=== PATIENT | female | born 1960 | race Two or more races ===

== ENCOUNTER 2022-04-06 16:04 | Emergency (ER) | payer MEDICARE, MEDICAID, SELFPAY ==
[2022-04-06 16:34] VITALS: BP 154/78; PULSE 94; RESP 18; TEMP 37.1; O2SAT 98; BMI 32.9
--- NOTE | 2022-04-06 19:50 | ED_ITS ---
HPI - General Adult General Chief complaint: Wound/Laceration Stated complaint: foot wound Time Seen by Provider: 04/06/22 19:18 Source: patient Mode of arrival: ambulatory Limitations: no limitations History of Present Illness HPI narrative: 67-year-old female presents to ED for right ankle wound that has been chronic and present for the past 2 months. Patient states a broom hit her ankle and splinter went into her ankle. Patient states months later she removed the splinter wood and eounf has been the same. Patient does not know of medical history. Patient has not been to the doctor in 35 years. Patient admits to being a smoker. Patient unknown she is diabetic. Patient's friend states at onr time patient is finger glucose was 300 when she checked on another friend's glucometer. Patient denies any dysuria, hematuria, polydipsia or polyuria. Patient denies any weakness or dizziness. Patient denies any fever or chills Related Data Allergies Allergy/AdvReac Type Severity Reaction Status Date / Time No Known Allergies Allergy Unverified 04/04/20 17:56 Lidocaine Allergy Unknown Uncoded 12/07/18 00:00 Review of Systems Review of Systems: RIght ankle wound PMFSH Social History Social History Advance Directives: No Advance Directives Information Provided: No Physical Exam ED Vital Signs: Vital Signs - 24 hr 04/06/22 16:34 Temperature 98.8 F Pulse Rate 94 Respiratory Rate 18 Blood Pressure 154/78 H Pulse Oximetry 98 Oxygen Delivery Method Room Air BMI result Body Mass Index 32.9 Const General: cooperative, healthy appearing, comfortable, no acute distress, well developed, awake and Physically active Orientation/consciousness: oriented to time and patient oriented x3 [facility] Head: Yes normal to inspection, Yes No palpable skull fracture present, Yes normocephalic, Yes atraumatic and No abrasion Eyes General: appearance normal, both eyes and all related structures Neck Neck: Yes normal visual inspection, Yes full ROM, Yes no lymphadenopathy, Yes no meningeal signs, Yes trachea midline, Yes supple, No anterior neck swelling and No tender Chest Chest palpation & inspection: normal inspection of the chest and normal palpation of entire chest wall Breast/axilla inspection: normal inspection of the breasts Resp Effort & Inspection: normal respiratory effort and able to speak in complete sentences Auscultation: clear to auscultation bilaterally Cardio Jugular venous distension: no JVD Heart sounds: S1 normal heart sound present and S2 normal heart sound present GI Inspection: Yes normal to inspection and No abdominal wall ecchymosis Palpation (GI): Soft to palpation, not firm, nontender, no guarding and not rigid General: No CVA tenderness and Yes no CVA tenderness Back/Spine/Pelvis Back: no CVA tenderness, No CVA tenderness and No back tenderness Skin General skin exam: no rashes or lesions noted, elasticity normal and turgor normal Neuro General: oriented to time, patient oriented x3, gait normal and no meningeal signs Cranial nerves: Yes CN's II-XII intact bilaterally Extrem Other: Right ankle wound: Negative for any foul odor or pus discharge. Positive for serosanguineous fluid. Rest of extremity normal. Motor/nose/vascular exam intact Psych Appearance: grossly normal, well kempt and not disheveled Course Course Course Narrative: Will do fingerstick and x-ray Reevaluation(s) Reevaluation #1: Patient eloped from the ER and never had x-ray or glucose fingerstick. Time: 20:44 Medical Decision Making [facility] Narrative Medical decision making narrative: Chronic wound. Venous ulceration Discharge Plan Discharge Clinical Impression: Venous ulcer of ankle Patient Disposition: Elopement Instructions: Chronic Wounds (ED) Interventions: ED Discharge Assessment Last Done: 04/06/22 20:44 Discharge Date/Time: 04/06/22 20:44
== END 2022-04-06 20:44 | disposition left against medical advice (07) ==
PROVIDERS: Emergency Provider Internal Medicine
DX: I83.013 Varicose veins of right lower extremity with ulcer of ankle (principal); L97.319 Non-pressure chronic ulcer of right ankle with unspecified severity
CPT/HCPCS: 99282